=== PATIENT | male | born 1980 | race African-American/Black ===

== ENCOUNTER 2023-11-03 15:30 | Emergency (ER) | payer OTHER ==
[~2023-11-03] VITALS: Ht 185.4 cm; Wt 111.0 kg
[2023-11-03 15:38] VITALS: PULSE 101
[2023-11-03 15:45] VITALS: BP 182/109; RESP 16; TEMP 97.8; O2SAT 99
[2023-11-03] MEDS: LIDOCAINE 5% PATCH TOP SCH (17:45)
== END 2023-11-03 19:50 | disposition home or self-care (01) ==
LOC: ER 15:30
DX: S39.012A Strain of muscle, fascia and tendon of lower back, initial encounter (principal); I10 Essential (primary) hypertension; Z98.890 Other specified postprocedural states; X58.XXXA Exposure to other specified factors, initial encounter; Y93.89 Activity, other specified; Y92.89 Other specified places as the place of occurrence of the external cause; Y99.8 Other external cause status
CPT/HCPCS: 99281